=== PATIENT | female | born 2000 | race Caucasian/White ===

== ENCOUNTER 2021-06-17 12:11 | Outpatient (REF) | payer MEDICAID, SELFPAY ==
[2021-06-17 14:05] LABS: Hemoglobin 12.6 g/dl (12.0-16.0); Mean Corpuscular HGB Conc 33.2 g/dl (31.0-35.0); Mean Corpuscular Hemoglobin 29.5 pg (27.0-33.0); Mean Platelet Volume 9.8 fL (9.4-12.3); Platelet Count 397 X10*3/uL (160-400); Red Blood Count 4.27 X10*6/uL (4.20-5.50); Red Cell Distribution Width 13.4 % (11.0-16.0); White Blood Count 7.5 X10*3/uL (4.8-10.8)
[2021-06-17 14:15] LABS: Alanine Aminotransferase 11 U/L (0-31); Albumin Level 4.3 g/dL (3.5-5.0); Alkaline Phosphatase 50 U/L (39-117); Anion Gap 11 (12-20); Aspartate Amino Transferase 13 U/L (5-31); Bilirubin Total 0.6 mg/dL (0.0-1.0); Blood Urea Nitrogen 11 mg/dL (9-16); Carbon Dioxide 23 mmol/L (22-29); Chloride 110 mmol/L (96-108); Cholesterol 144 mg/dL; Estimated Glomerular Filt Rate > 60; Glucose Fasting 92 mg/dL (60-99); HDL Cholesterol 40 mg/dL; LDL Cholesterol Calculated 97 mg/dl; Potassium 4.1 mmol/L (3.3-5.1); Sodium 140 mmol/L (135-145); Total Protein 6.8 g/dL (6.5-8.0); Triglycerides 39 mg/dL
[2021-06-17 14:36] LABS: TSH reflex Free T4 1.21 uIU/mL (0.32-4.0)
[2021-06-18 03:20] LABS: Syphilis Screen Nonreactive (Nonreactive)
[2021-06-18 03:25] LABS: HIV AB/AG Nonreactive (Nonreactive); HIV Num 1 0.07 S/CO (0.00-0.99)
== END 2021-06-17 12:12 | disposition home or self-care (01) ==
LOC: HO.HMGCLDS 12:11
PROVIDERS: PCP Internal Medicine; Visit Provider Internal Medicine
DX: Z00.00 Encounter for general adult medical examination without abnormal findings (principal); R00.2 Palpitations
CPT/HCPCS: 36415; 80053; 80061; 83735; 84443; 85027; 86780; 87389

== ENCOUNTER 2021-06-17 15:09 | Outpatient (REF) | payer MEDICAID, SELFPAY ==
[2021-06-30 18:16] LABS: HPV mRNA E6/E7 Not Detected (Not Detected)
== END 2021-06-17 15:10 | disposition home or self-care (01) ==
LOC: HO.LAB 15:09
PROVIDERS: Visit Provider Internal Medicine
DX: Z12.4 Encounter for screening for malignant neoplasm of cervix (principal)
CPT/HCPCS: 87624; 88142